=== PATIENT | female | born 1990 | race African-American/Black ===

== ENCOUNTER 2018-06-10 13:38 | Emergency (ER) | payer SELFPAY ==
--- NOTE | 2018-06-10 14:39 | ER Document Report ---
ED Medical Screen (RME) - General Chief Complaint: Abdominal Cramping Stated Complaint: ABDOMINAL PAIN Time Seen by Provider: 06/10/18 14:37 Primary Care Provider: KIA CARRIZALES MD [Primary Care Provider] - Follow up as needed Mode of Arrival: Ambulatory Information source: Patient Notes: 27-year-old female presents to ED for complaint of pelvic cramping and vaginal spotting. She has not had a period since beginning of and thinks she may be and now she is spotting and she is concerned. 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 She is alert oriented respirations regular and unlabored and walks with a even steady gait. After performing a Medical Screening Examination, I spoke with the patient at length in regards to leaving the hospital against medical advice. I do not believe the patient should leave but the patient is alert oriented x4, understands the risks and benefits of staying and leaving including disability and . Pt understands that he can return at any time for further care and is more than welcome to do so. Pt verbalizes this understanding. - Related Data Allergies/Adverse Reactions: No Known Allergies Allergy (Unverified 06/10/18 13:39) Physical Exam - Vital signs Vitals: Temp Pulse Resp BP Pulse Ox 98.4 F 101 H 16 109/62 98 06/10/18 13:47 06/10/18 13:47 06/10/18 13:47 06/10/18 13:47 06/10/18 13:47 Course - Vital Signs Vital signs: Temp Pulse Resp BP Pulse Ox 98.4 F 101 H 16 109/62 98 06/10/18 13:47 06/10/18 13:47 06/10/18 13:47 06/10/18 13:47 06/10/18 13:47 Doctor's Discharge - Discharge Referrals: KIA CARRIZALES MD [Primary Care Provider] - Follow up as needed
[2018-06-10 16:13] LABS: ABSOLUTE EOSINOPHILS # (AUTO) 0.1 10^3/uL (0.0-0.6); ABSOLUTE LYMPHOCYTES (AUTO) 1.7 10^3/uL (0.5-4.7); ABSOLUTE MONOCYTES (AUTO) 0.6 10^3/uL (0.1-1.4); ABSOLUTE NEUT (AUTO) 9.3 10^3/uL (1.7-8.2); BASOPHILS % (AUTO) 0.3 % (0-2); EOSINOPHILS % (AUTO) 0.9 % (0-6); LYMPHOCYTES % (AUTO) 14.8 % (13-45); MEAN CORPUSCULAR HEMOGLOBIN 28.1 pg (27.0-33.4); MEAN CORPUSCULAR HGB CONC 33.4 g/dL (32.0-36.0); MEAN CORPUSCULAR VOLUME 84 fl (80-97); MONOCYTES % (AUTO) 4.8 % (3-13); PLATELET COUNT 189 10^3/uL (150-450); RED BLOOD COUNT 4.29 10^6/uL (3.72-5.28); RED CELL DISTRIBUTION WIDTH 14.4 % (11.5-14.0); SEGMENTED NEUTROPHILS % (AUTO) 79.2 % (42-78); TOTAL CELLS COUNTED % (AUTO) 100 %; WHITE BLOOD COUNT 11.8 10^3/uL (4.0-10.5)
[2018-06-10 16:33] LABS: ALANINE AMINOTRANSFERASE 24 U/L (9-52); ALBUMIN 4.4 g/dL (3.5-5.0); ALKALINE PHOSPHATASE 51 U/L (38-126); ANION GAP 8 (5-19); ASPARTATE AMINO TRANSFERASE 28 U/L (14-36); BILIRUBIN,DIRECT 0.2 mg/dL (0.0-0.4); BILIRUBIN,TOTAL 0.3 mg/dL (0.2-1.3); BLOOD UREA NITROGEN 14 mg/dL (7-20); CALCIUM 9.4 mg/dL (8.4-10.2); CARBON DIOXIDE 23 mmol/L (22-30); CHLORIDE 106 mmol/L (98-107); GLUCOSE 86 mg/dL (75-110); POTASSIUM 4.5 mmol/L (3.6-5.0); SODIUM 137.1 mmol/L (137-145); TOTAL PROTEIN 7.1 g/dL (6.3-8.2)
[2018-06-10 16:47] LABS: APPEARANCE,URINE SLIGHTLY-CLOUDY; BILIRUBIN,URINE NEGATIVE (NEGATIVE); COLOR,URINE YELLOW; GLUCOSE, URINE NEGATIVE (NEGATIVE); KETONES,URINE NEGATIVE (NEGATIVE); LEUKOCYTE ESTERASE,URINE SMALL (NEGATIVE); NITRITE,URINE NEGATIVE (NEGATIVE); PROTEIN,URINE NEGATIVE (NEGATIVE); URINE SPECIFIC GRAVITY 1.024; UROBILINOGEN,URINE NEGATIVE mg/dL (<2.0)
--- NOTE | 2018-06-10 17:41 | ER Document Report ---
ED GI/ - General Chief Complaint: Abdominal Cramping Stated Complaint: ABDOMINAL PAIN Time Seen by Provider: 06/10/18 14:37 Primary Care Provider: KIA CARRIZALES MD [ACTIVE STAFF] - Follow up as needed Mode of Arrival: Ambulatory Notes: 27-year-old 001 at around 8 weeks by dates who presents today with 1 week of some intermittent suprapubic nonbleeding abdominal pain without fevers. Some minimal spotting without clots. No dysuria vaginal discharge. No flank pain. TRAVEL OUTSIDE OF THE [place] IN LAST 30 DAYS: No - HPI Patient complains to provider of: Other - See above Onset: Other - See above Quality of pain: Other - See above Severity at maximum: Mild Severity in ED: Mild Pain Level: Denies Location: Other - See above Vaginal bleeding (Compared to normal period): Spotting Menstrual period history: Missed, Associated symptoms: Other - See above Exacerbated by: Denies Relieved by: Denies Similar symptoms previously: No Recently seen / treated by doctor: No - Related Data Allergies/Adverse Reactions: No Known Allergies Allergy (Unverified 06/10/18 13:39) Past Medical History - General Information source: Patient - Social History Smoking Status: Never Smoker Chew tobacco use (# tins/day): No Drug Abuse: None Family History: Reviewed & Not Pertinent Patient has suicidal ideation: No Patient has homicidal ideation: No Renal/ Medical History: Denies: Hx Peritoneal Dialysis Review of Systems - Review of Systems Constitutional: denies: Fever EENT: Nose discharge. denies: Eye discharge Cardiovascular: denies: Chest pain, Palpitations Respiratory: denies: Short of breath Gastrointestinal: denies: Vomiting Genitourinary: denies: Dysuria Musculoskeletal: denies: Leg swelling Skin: denies: Rash Neurological/Psychological: Other - no slurred speech -: Yes All other systems reviewed and negative Physical Exam - Vital signs Vitals: Temp Pulse Resp BP Pulse Ox 98.4 F 101 H 16 109/62 98 06/10/18 13:47 06/10/18 13:47 06/10/18 13:47 06/10/18 13:47 06/10/18 13:47 Notes: Reviewed vital signs and nursing note as charted by RN. CONSTITUTIONAL: Alert and oriented and responds appropriately to questions. Well-appearing; well-nourished HEAD: Normocephalic; atraumatic EYES: Sclerae pale CARD: Regular rate and rhythm; no murmurs; symmetric distal pulses RESP: Breath sounds bilaterally without wheezing or rhonchi ABD/GI: Normal bowel sounds; non-distended; soft, nontender to deep palpation of all 4 quadrants of the abdomen; no palpable organomegaly or masses BACK: The back appears normal and is non-tender to palpation EXT: Normal ROM in all joints; non-tender to palpation; no edema SKIN: No acute lesions noted NEURO: CN 2-12 intact; 5/5 bilateral upper and lower extremity strength with sensation intact to light touch PSYCH: The patient's mood and manner are appropriate. Grooming and personal hygiene are appropriate. Course - Re-evaluation Re-evalutation: 06/10/18 17:42 Given the history and physical examination, we will order an ultrasound, obtain a RhoGam, obtain hemoglobin, and perform a transvaginal ultrasound. Quantitative hCG as recorded. 06/10/18 18:32 Quant hemoglobin and blood type as recorded. No RhoGam is needed. No change in exam. Vital signs are stable. On pelvic examination the patient has no obvious external/internal lesions. Osseous closed. Minimal blood in the vault. No adnexal tenderness or masses. No cervical motion tenderness. - Vital Signs Vital signs: Temp Pulse Resp BP Pulse Ox 98.4 F 101 H 16 109/62 98 06/10/18 13:47 06/10/18 13:47 06/10/18 13:47 06/10/18 13:47 06/10/18 13:47 - Laboratory Result Diagrams: 06/10/18 15:50 06/10/18 15:50 Laboratory results interpreted by me: 06/10/18 06/10/18 06/10/18 15:45 15:50 15:50 WBC 11.8 H RDW 14.4 H Seg Neutrophils % 79.2 H Absolute Neutrophils 9.3 H Beta HCG, Quant 773332.00 H Ur Leukocyte Esterase SMALL H Urine Ascorbic Acid 40 H Discharge - Discharge Clinical Impression: Vaginal bleeding in patient at less than 20 weeks gestation Referrals: KIA CARRIZALES MD [ACTIVE STAFF] - Follow up as needed
[2018-06-10 18:18] LABS: T.VAGINALIS (WET MOUNT) NO TRICHOMONAS SEEN; YEAST (WET MOUNT) NO YEAST SEEN
[2018-06-10 18:19] LABS: BACTERIA (WET MOUNT) 4+ BACTERIA SEEN; EPITHELIALS (WET MOUNT) 4+ EPITHELIALS SEEN; RBCS (WET MOUNT) NO RBCS SEEN; WBCS (WET MOUNT) 4+ WBCS SEEN
--- NOTE | 2018-06-10 19:02 | RADIOLOGY REPORT (SQ) ---
EXAM DESCRIPTION: U/S OB TRANSVAGINAL W/O DOP COMPLETED DATE/TIME: 06/10/2018 6:52 pm REASON FOR STUDY: 39; preg with vag bleeding COMPARISON: None. TECHNIQUE: Transvaginal static and realtime grayscale images acquired of the pelvis. Additional francisco cted spectral and color Doppler images recorded. All images stored on PACs. bHC,000 CLINICAL DATES: LMP 03/27/2018. 12 weeks 5 days. LIMITATIONS: None. FINDINGS: FETUS: Single Living intrauterine . ULTRASOUND EGA: 12 weeks 5 days. ULTRASOUND MENG: 12/18/2018 EFW: Not applicable less than 20 weeks. CRL: 6.4 cm. FHR: 160 beats per minute. SURVEY: Too early to assess. AMNIOTIC FLUID: Adequate amount. PLACENTA: Posterior. SUBCHORIONIC BLEED: No SIZE OF BLEED: Not applicable. UTERUS: No masses. No anomalies. CERVICAL LENGTH: 4.1 cm. Closed. RIGHT ADNEXA: Ovary not seen. No adnexal free fluid. No adnexal masses. LEFT ADNEXA: Ovary not seen. No adnexal free fluid. No adnexal masses. FREE FLUID: None. OTHER: No other significant finding. IMPRESSION: LIVING INTRAUTERINE . EGA 12 weeks 5 days. Trimester of : First - 0 to 13 weeks. TECHNICAL DOCUMENTATION: JOB ID: [id number] [employer]- All Rights Reserved Reading location - IP/workstation name: [email or web address]
[2018-06-10 19:52] VITALS: BP 111/63
[2018-06-10 19:59] LABS: CHLAM PCR NOT DETECTED (NOT DETECT); GON PCR NOT DETECTED (NOT DETECT)
== END 2018-06-10 19:53 | disposition home or self-care (01) ==
LOC: ER 13:38
DX: O46.91 Antepartum hemorrhage, unspecified, first trimester (principal); O26.891 Other specified pregnancy related conditions, first trimester; R10.9 Unspecified abdominal pain; R10.30 Lower abdominal pain, unspecified; Z3A.08 8 weeks gestation of pregnancy
CPT/HCPCS: 36415; 76817; 80053; 81001; 84702; 85025; 86900; 86901; 87210; 87491; 87591; 99284

== ENCOUNTER 2018-12-03 00:16 | Emergency (ER) | payer MEDICAID ==
[2018-12-03 00:21] VITALS: BP 116/79
== END 2018-12-03 02:10 | disposition left against medical advice (07) ==
LOC: ER 00:16
DX: Z53.21 Procedure and treatment not carried out due to patient leaving prior to being seen by health care provider (principal)

== ENCOUNTER 2019-01-21 10:47 | Emergency (ER) | payer MEDICAID ==
[2019-01-21] MEDS ORDERED: METOCLOPRAMIDE HCL ORAL SOLN 10 MG/10 ML UDCUP PO ONE (11:17)
[2019-01-21] MEDS ORDERED: MAG HYDROX/AL HYDROX/SIMETH SUSP 30 ML UDCUP PO ONE (11:17)
[2019-01-21] MEDS ORDERED: LIDOCAINE 2% VISCOUS SOLN 20 ML UDCUP PO ONE (11:17)
--- NOTE | 2019-01-21 11:20 | ER Document Report ---
ED Medical Screen (RME) - General Chief Complaint: Abdominal Pain Stated Complaint: ABDOMINAL PAIN Time Seen by Provider: 01/21/19 11:09 Notes: Patient is a 28-year-old female presents to the emergency department with a chief complaint of upper abdominal cramping. Patient reports is located in the epigastric area. Patient denies belching, acid reflux or burning sensation in the esophagus. Patient does report a constant sharp pain to the upper abdomen for 2 days that has become more intense. Patient reports she did vomit once last night. Patient denies any vaginal bleeding or discharge. Patient reports her last menstrual cycle was December 14 and normally has regular periods. Patient reports she is sexually active and is not on control. Patient states she would like to be checked for STDs if possible as she did have sexual intercourse 3 weeks ago. Patient states she has had an odor coming from her vagina but no change in her normal discharge. Patient denies urinary symptoms. TRAVEL OUTSIDE OF THE [place] IN LAST 30 DAYS: No - Related Data Allergies/Adverse Reactions: No Known Allergies Allergy (Verified 01/21/19 10:49) Past Medical History Renal/ Medical History: Denies: Hx Peritoneal Dialysis Physical Exam - Vital signs Vitals: Temp Pulse Resp BP Pulse Ox 98.9 F 82 16 115/56 L 97 01/21/19 10:55 01/21/19 10:55 01/21/19 10:55 01/21/19 10:55 01/21/19 10:55 - Abdominal Inspection: Normal Distension: No distension Bowel sounds: Normal Tenderness: Tender - Epigastric tenderness Course - Re-evaluation Re-evalutation: 01/21/19 11:20 I have greeted and performed a rapid initial assessment of this patient. A comprehensive ED assessment and evaluation of the patient, analysis of test results and completion of the medical decision making process will be conducted by additional ED providers. - Vital Signs Vital signs: Temp Pulse Resp BP Pulse Ox 98.9 F 82 16 115/56 L 97 01/21/19 10:55 01/21/19 10:55 01/21/19 10:55 01/21/19 10:55 01/21/19 10:55
[2019-01-21 12:17] LABS: ABSOLUTE EOSINOPHILS # (AUTO) 0.1 10^3/uL (0.0-0.6); ABSOLUTE LYMPHOCYTES (AUTO) 1.9 10^3/uL (0.5-4.7); ABSOLUTE MONOCYTES (AUTO) 0.4 10^3/uL (0.1-1.4); ABSOLUTE NEUT (AUTO) 7.4 10^3/uL (1.7-8.2); BASOPHILS % (AUTO) 0.2 % (0-2); EOSINOPHILS % (AUTO) 1.1 % (0-6); HEMATOCRIT 36.1 % (36.0-47.0); HEMOGLOBIN 11.9 g/dL (12.0-15.5); LYMPHOCYTES % (AUTO) 19.1 % (13-45); MEAN CORPUSCULAR HEMOGLOBIN 27.6 pg (27.0-33.4); MEAN CORPUSCULAR HGB CONC 33.1 g/dL (32.0-36.0); MEAN CORPUSCULAR VOLUME 84 fl (80-97); PLATELET COUNT 182 10^3/uL (150-450); RED BLOOD COUNT 4.32 10^6/uL (3.72-5.28); RED CELL DISTRIBUTION WIDTH 15.2 % (11.5-14.0); SEGMENTED NEUTROPHILS % (AUTO) 75.6 % (42-78); TOTAL CELLS COUNTED % (AUTO) 100 %; WHITE BLOOD COUNT 9.8 10^3/uL (4.0-10.5)
[2019-01-21 12:33] LABS: APPEARANCE,URINE SLIGHTLY-CLOUDY; BILIRUBIN,URINE NEGATIVE (NEGATIVE); COLOR,URINE AMBER; GLUCOSE, URINE NEGATIVE (NEGATIVE); KETONES,URINE NEGATIVE (NEGATIVE); LEUKOCYTE ESTERASE,URINE NEGATIVE (NEGATIVE); NITRITE,URINE POSITIVE (NEGATIVE); PROTEIN,URINE NEGATIVE (NEGATIVE); URINE SPECIFIC GRAVITY 1.024; UROBILINOGEN,URINE NEGATIVE mg/dL (<2.0)
[2019-01-21 12:35] LABS: ALBUMIN 4.2 g/dL (3.5-5.0); ALKALINE PHOSPHATASE 54 U/L (38-126); ANION GAP 9 (5-19); ASPARTATE AMINO TRANSFERASE 21 U/L (14-36); BILIRUBIN,DIRECT 0.1 mg/dL (0.0-0.4); BILIRUBIN,TOTAL 0.4 mg/dL (0.2-1.3); BLOOD UREA NITROGEN 9 mg/dL (7-20); CALCIUM 9.4 mg/dL (8.4-10.2); CARBON DIOXIDE 26 mmol/L (22-30); CHLORIDE 103 mmol/L (98-107); GLUCOSE 107 mg/dL (75-110); POTASSIUM 3.6 mmol/L (3.6-5.0)
--- NOTE | 2019-01-21 13:03 | ER Document Report ---
ED GI/ - General Chief Complaint: Abdominal Pain Stated Complaint: ABDOMINAL PAIN Time Seen by Provider: 01/21/19 11:09 Primary Care Provider: [facility] [Provider Group] - Follow up as needed [facility] [NO [facility]AL MD] - Follow up as needed Mode of Arrival: Ambulatory Information source: Patient Notes: Patient presents complaining of 2-day history of epigastric abdominal pain with nausea and vomiting. No diarrhea. Patient also reports some lower pelvic pain with urinary frequency and odor to her urine. Patient reports mild vaginal discharge. Patient does report recent unprotected intercourse and is concerned about possible exposure to STD and would like to be tested. Patient states that she was given medications in triage to help with her epigastric pain and that the medicine has almost completely resolved her upper abdominal pain symptoms TRAVEL OUTSIDE OF THE [place] IN LAST 30 DAYS: No - HPI Patient complains to provider of: Abdominal pain, Vaginal discharge, Vomiting Onset: Other - 2 days Timing/Duration: Persistent Quality of pain: Achy Pain Level: 2 Location: Epigastric, Pelvis Vaginal bleeding (Compared to normal period): None Sexual history: Unprotected intercourse Associated symptoms: Nausea, Odor, Urinary frequency, Vaginal discharge, Vomiting. denies: Diarrhea, Fever, Urinary hesitancy Exacerbated by: Denies Relieved by: Denies Similar symptoms previously: No Recently seen / treated by doctor: No - Related Data Allergies/Adverse Reactions: No Known Allergies Allergy (Verified 01/21/19 10:49) Past Medical History - General Information source: Patient - Social History Smoking Status: Never Smoker Chew tobacco use (# tins/day): No Frequency of alcohol use: Occasional Drug Abuse: None Occupation: None Lives with: Family Family History: Reviewed & Not Pertinent Patient has suicidal ideation: No Patient has homicidal ideation: No - Medical History Medical History: Negative Renal/ Medical History: Denies: Hx Peritoneal Dialysis Surgical Hx: Negative Review of Systems - Review of Systems Constitutional: No symptoms reported. denies: Fever, Recent illness EENT: No symptoms reported Cardiovascular: No symptoms reported Respiratory: No symptoms reported Gastrointestinal: Abdominal pain, Nausea, Vomiting Genitourinary: Frequency. denies: Dysuria Female Genitourinary: Vaginal discharge. denies: Vaginal bleeding Musculoskeletal: No symptoms reported. denies: Back pain Skin: No symptoms reported Hematologic/Lymphatic: No symptoms reported Neurological/Psychological: No symptoms reported Physical Exam - Vital signs Vitals: Temp Pulse Resp BP Pulse Ox 98.9 F 82 16 115/56 L 97 01/21/19 10:55 01/21/19 10:55 01/21/19 10:55 01/21/19 10:55 01/21/19 10:55 - General General appearance: Appears well, Alert In distress: None - HEENT Head: Normocephalic, Atraumatic Eyes: Normal Conjunctiva: Normal Nasal: Normal Mouth/Lips: Normal Mucous membranes: Normal Neck: Normal, Supple. No: Lymphadenopathy - Respiratory Respiratory status: No respiratory distress Chest status: Nontender Breath sounds: Normal. No: Rales, Rhonchi, Stridor, Wheezing Chest palpation: Normal - Cardiovascular Rhythm: Regular Heart sounds: S1 appreciated, S2 appreciated Murmur: No - Abdominal Inspection: Normal Distension: No distension Bowel sounds: Normal Tenderness: Tender - epigastric, lower pelvic - Genitourinary External exam: Normal Speculum exam: Normal, Cervix closed Vaginal bleeding: None Bimanuel exam: Adnexal tenderness - right. No: Cervical motion tender - Back Back: Normal, Nontender. No: CVA tenderness - Extremities General upper extremity: Normal inspection, Normal ROM General lower extremity: Normal inspection, Normal ROM - Neurological Neuro grossly intact: Yes Cognition: Normal [place] Coma Scale Eye Opening: Spontaneous [place] Coma Scale Verbal: Oriented [place] Coma Scale Motor: Obeys Commands [place] Coma Scale Total: 15 - Psychological Associated symptoms: Normal affect, Normal mood - Skin Skin Temperature: Warm Skin Moisture: Dry Skin Color: Normal Course - Re-evaluation Re-evalutation: 01/21/19 14:23 Patient advised of positive test and ultrasound findings. Patient encouraged to follow-up with the primary doctor and establish OB care. Patient does have concerns about possible STD exposure and would like prophylactic treatment at this time. Urine culture will be obtained. Patient otherwise nontoxic in appearance and stable for discharge. Patient presents with abdominal pain without signs of peritonitis or other life-threatening or serious etiology. Patient appears stable for discharge and has been instructed to return immediately if the symptoms worsen in any way for reevaluation. - Vital Signs Vital signs: Temp Pulse Resp BP Pulse Ox 97.7 F 86 20 122/79 100 01/21/19 15:19 01/21/19 15:19 01/21/19 15:19 01/21/19 15:19 01/21/19 15:19 - Laboratory Result Diagrams: 01/21/19 11:21 01/21/19 11:21 Laboratory results interpreted by me: 01/21/19 01/21/19 01/21/19 11:21 11:21 11:21 Hgb 11.9 L RDW 15.2 H Beta HCG, Quant 77067.00 H Urine Nitrite POSITIVE H 01/21/19 14:24 Labs- Entire Visit 01/21/19 01/21/19 01/21/19 11:21 11:21 11:21 WBC 9.8 RBC 4.32 Hgb 11.9 L Hct 36.1 MCV 84 MCH 27.6 MCHC 33.1 RDW 15.2 H Plt Count 182 Lymph % (Auto) 19.1 Cherry % (Auto) 4.0 Eos % (Auto) 1.1 Baso % (Auto) 0.2 Absolute Neuts (auto) 7.4 Absolute Lymphs (auto) 1.9 Absolute Monos (auto) 0.4 Absolute Eos (auto) 0.1 Absolute Basos (auto) 0.0 Seg Neutrophils % 75.6 Sodium 137.7 Potassium 3.6 Chloride 103 Carbon Dioxide 26 Anion Gap 9 BUN 9 Creatinine 0.59 Est GFR ( Amer) > 60 Est GFR (MDRD) Non-Af > 60 Glucose 107 Calcium 9.4 Total Bilirubin 0.4 Direct Bilirubin 0.1 Neonat Total Bilirubin Not Reportable Neonat Direct Bilirubin Not Reportable Neonat Indirect Bili Not Reportable AST 21 ALT 13 Alkaline Phosphatase 54 Total Protein 7.0 Albumin 4.2 Lipase 118.3 Beta HCG, Quant 80285.00 H Total Beta HCG POSITIVE Urine Color PAVEL Urine Appearance SLIGHTLY-CLOUDY Urine pH 6.0 Ur Specific Waldron 1.024 Urine Protein NEGATIVE Urine Glucose (UA) NEGATIVE Urine Ketones NEGATIVE Urine Blood NEGATIVE Urine Nitrite POSITIVE H Urine Bilirubin NEGATIVE Urine Urobilinogen NEGATIVE Ur Leukocyte Esterase NEGATIVE Urine WBC (Auto) 2 Urine RBC (Auto) 2 Squamous Epi Cells Auto 2 Urine Mucus (Auto) FEW Urine Ascorbic Acid NEGATIVE Epi Cells (Wet Prep) Bacteria (Wet Prep) Trichomonas (Wet Prep) Vaginal WBC Vaginal RBC Vaginal Yeast 01/21/19 12:50 WBC RBC Hgb Hct MCV MCH MCHC RDW Plt Count Lymph % (Auto) Cherry % (Auto) Eos % (Auto) Baso % (Auto) Absolute Neuts (auto) Absolute Lymphs (auto) Absolute Monos (auto) Absolute Eos (auto) Absolute Basos (auto) Seg Neutrophils % Sodium Potassium Chloride Carbon Dioxide Anion Gap BUN Creatinine Est GFR ( Amer) Est GFR (MDRD) Non-Af Glucose Calcium Total Bilirubin Direct Bilirubin Neonat Total Bilirubin Neonat Direct Bilirubin Neonat Indirect Bili AST ALT Alkaline Phosphatase Total Protein Albumin Lipase Beta HCG, Quant Total Beta HCG Urine Color Urine Appearance Urine pH Ur Specific Waldron Urine Protein Urine Glucose (UA) Urine Ketones Urine Blood Urine Nitrite Urine Bilirubin Urine Urobilinogen Ur Leukocyte Esterase Urine WBC (Auto) Urine RBC (Auto) Squamous Epi Cells Auto Urine Mucus (Auto) Urine Ascorbic Acid Epi Cells (Wet Prep) 4+ EPITHELIALS SEEN Bacteria (Wet Prep) 4+ BACTERIA SEEN Trichomonas (Wet Prep) NO TRICHOMONAS SEEN Vaginal WBC 2+ WBCS SEEN Vaginal RBC FEW RBCS SEEN Vaginal Yeast NO YEAST SEEN - Diagnostic Test Radiology reviewed: Reports reviewed Discharge - Discharge Clinical Impression: Intrauterine , Bacterial vaginosis in UTI (urinary tract infection) Qualifiers: Urinary tract infection type: site unspecified Hematuria presence: without hematuria Qualified Code(s): N39.0 - Urinary tract infection, site not specified Nausea & vomiting Qualifiers: Vomiting type: unspecified Vomiting Intractability: non-intractable Qualified Code(s): R11.2 - Nausea with vomiting, unspecified Condition: Stable Disposition: HOME, SELF-CARE Instructions: Cephalexin ([facility]), Pelvic Pain in ([facility]), Urinary Tract Infection ([facility]), Vaginosis, Bacterial ([facility]) Additional Instructions: Return immediately for any new or worsening symptoms Followup with your primary care provider, call tomorrow to make a followup appointment Urine culture is pending, will call if you need any different treatment Follow-up with an [employer] provider to establish care Prescriptions: Metronidazole [Flagyl 500 mg Tablet] 500 mg PO BID #14 tablet Cephalexin Monohydrate [Keflex 500 mg Capsule] 500 mg PO BID 5 Days capsule Promethazine HCl [Phenergan 25 mg Tablet] 25 mg PO Q6H PRN #10 tablet PRN Reason: Referrals: [facility] [Provider Group] - Follow up as needed [facility] [NO LOCAL MD] - Follow up as needed
[2019-01-21 13:04] LABS: BACTERIA (WET MOUNT) 4+ BACTERIA SEEN; EPITHELIALS (WET MOUNT) 4+ EPITHELIALS SEEN; RBCS (WET MOUNT) FEW RBCS SEEN; T.VAGINALIS (WET MOUNT) NO TRICHOMONAS SEEN; WBCS (WET MOUNT) 2+ WBCS SEEN; YEAST (WET MOUNT) NO YEAST SEEN
--- NOTE | 2019-01-21 14:12 | RADIOLOGY REPORT (SQ) ---
EXAM DESCRIPTION: U/S OB TRANSVAGINAL W/O DOP COMPLETED DATE/TIME: 01/21/2019 1:53 pm REASON FOR STUDY: pelvic pain COMPARISON: None. TECHNIQUE: Transvaginal static and realtime grayscale images acquired of the pelvis. Additional francisco cted spectral and color Doppler images recorded. All images stored on PACs. CLINICAL AGE: 5 weeks 4 days bHC,400 LIMITATIONS: None. FINDINGS: UTERUS: No masses. No anomalies. GESTATIONAL SAC: Normal shape. 1.4 cm diameter correlating with 6 weeks 2 day gestation. MENG 09/14/19 20. YOLK SAC: 4 mm POLE: None present. RIGHT ADNEXA: Normal ovary with normal vascular flow. No adnexal free fluid. No adnexal masses. LEFT ADNEXA: Normal ovary with normal vascular flow. No adnexal free fluid. No adnexal masses. FREE FLUID: None. OTHER: No other significant finding. IMPRESSION: EARLY INTRAUTERINE , 6 weeks 2 day gestation. BHCG LEVEL APPROPRIATE FOR ENDOMETRIAL FINDINGS. Trimester of : First trimester - 0 to 13 weeks. TECHNICAL DOCUMENTATION: JOB ID: [id number] 2010 [employer]- All Rights Reserved Reading location - IP/workstation name: [email or web address]
[2019-01-21] MEDS ORDERED: AZITHROMYCIN 250 MG TABLET PO ONE (14:22)
[2019-01-21] MEDS ORDERED: CEFTRIAXONE INJ 1000 MG VIAL IM ONE (14:22)
[2019-01-21] MEDS ORDERED: LIDOCAINE 1% INJ (10 MG/ML) 10 ML MDV INJ ONE (14:22)
[2019-01-21 14:31] LABS: CHLAM PCR NOT DETECTED (NOT DETECT)
[2019-01-21 15:21] VITALS: BP 122/79
== END 2019-01-21 15:21 | disposition home or self-care (01) ==
LOC: ER 10:47
DX: O23.41 Unspecified infection of urinary tract in pregnancy, first trimester (principal); O23.591 Infection of other part of genital tract in pregnancy, first trimester; B96.89 Other specified bacterial agents as the cause of diseases classified elsewhere; O21.9 Vomiting of pregnancy, unspecified; O26.891 Other specified pregnancy related conditions, first trimester; R10.13 Epigastric pain; R10.2 Pelvic and perineal pain; R35.0 Frequency of micturition; Z3A.01 Less than 8 weeks gestation of pregnancy; Z20.2 Contact with and (suspected) exposure to infections with a predominantly sexual mode of transmission
CPT/HCPCS: 99284; 96372; 36415; 87086; 87210; 84702; 83690; 85025; 87088; 80053; 81001; 87186; 87491; 87591; 76817; Q0144; J3490 ×4; J0696

== ENCOUNTER 2019-01-29 14:28 | Emergency (ER) | payer MEDICAID ==
[2019-01-29] MEDS ORDERED: PROMETHAZINE HCL 25 MG TABLET PO ONE (14:55)
[2019-01-29] MEDS ORDERED: ACETAMINOPHEN 325 MG TABLET PO ONE (14:55)
--- NOTE | 2019-01-29 14:57 | ER Document Report ---
ED Medical Screen (RME) - General Chief Complaint: Vaginal Bleeding Stated Complaint: BLEEDING WITH Time Seen by Provider: 01/29/19 14:53 Mode of Arrival: Ambulatory Information source: Patient Notes: This 28-year-old 6-8 weeks female with last menstrual period in December,, P1 presents to the emergency department complaining of some nausea abdominal cramping and vaginal bleeding. Reports started 3 hours prior to arrival. Denies trauma. No other symptoms such as fever vomiting diarrhea. I have greeted and performed a rapid initial assessment of this patient. A comprehensive ED assessment and evaluation of the patient, analysis of test results and completion of the medical decision making process will be conducted by additional ED providers. Dictation of this chart was performed using voice recognition software; therefore, there may be some unintended grammatical errors. TRAVEL OUTSIDE OF THE [place] IN LAST 30 DAYS: No - Related Data Allergies/Adverse Reactions: No Known Allergies Allergy (Verified 01/29/19 14:46) Past Medical History - General Last Menstrual Period: 12/13/18 - Social History Chew tobacco use (# tins/day): No Frequency of alcohol use: None Drug Abuse: None Renal/ Medical History: Denies: Hx Peritoneal Dialysis Physical Exam - Vital signs Vitals: Temp Pulse Resp BP Pulse Ox 98.3 F 84 18 120/76 98 01/29/19 14:42 01/29/19 14:42 01/29/19 14:42 01/29/19 14:42 01/29/19 14:42 Course - Vital Signs Vital signs: Temp Pulse Resp BP Pulse Ox 98.3 F 84 18 120/76 98 01/29/19 14:42 01/29/19 14:42 01/29/19 14:42 01/29/19 14:42 01/29/19 14:42
[2019-01-29 15:30] LABS: ABSOLUTE EOSINOPHILS # (AUTO) 0.1 10^3/uL (0.0-0.6); ABSOLUTE MONOCYTES (AUTO) 0.5 10^3/uL (0.1-1.4); ABSOLUTE NEUT (AUTO) 7.8 10^3/uL (1.7-8.2); BASOPHILS % (AUTO) 0.3 % (0-2); EOSINOPHILS % (AUTO) 0.9 % (0-6); HEMATOCRIT 34.8 % (36.0-47.0); HEMOGLOBIN 11.7 g/dL (12.0-15.5); MEAN CORPUSCULAR HEMOGLOBIN 28.1 pg (27.0-33.4); MEAN CORPUSCULAR HGB CONC 33.6 g/dL (32.0-36.0); MEAN CORPUSCULAR VOLUME 84 fl (80-97); MONOCYTES % (AUTO) 5.3 % (3-13); PLATELET COUNT 196 10^3/uL (150-450); RED BLOOD COUNT 4.15 10^6/uL (3.72-5.28); RED CELL DISTRIBUTION WIDTH 14.7 % (11.5-14.0); SEGMENTED NEUTROPHILS % (AUTO) 74.5 % (42-78); TOTAL CELLS COUNTED % (AUTO) 100 %; WHITE BLOOD COUNT 10.4 10^3/uL (4.0-10.5)
[2019-01-29 15:39] LABS: APPEARANCE,URINE CLEAR; BILIRUBIN,URINE NEGATIVE (NEGATIVE); COLOR,URINE YELLOW; GLUCOSE, URINE NEGATIVE (NEGATIVE); KETONES,URINE NEGATIVE (NEGATIVE); LEUKOCYTE ESTERASE,URINE NEGATIVE (NEGATIVE); NITRITE,URINE NEGATIVE (NEGATIVE); PROTEIN,URINE NEGATIVE (NEGATIVE); URINE SPECIFIC GRAVITY 1.019; UROBILINOGEN,URINE NEGATIVE mg/dL (<2.0)
[2019-01-29 15:46] LABS: ALBUMIN 4.1 g/dL (3.5-5.0); ALKALINE PHOSPHATASE 57 U/L (38-126); ANION GAP 11 (5-19); ASPARTATE AMINO TRANSFERASE 23 U/L (14-36); BILIRUBIN,DIRECT 0.1 mg/dL (0.0-0.4); BILIRUBIN,TOTAL 0.4 mg/dL (0.2-1.3); BLOOD UREA NITROGEN 11 mg/dL (7-20); CALCIUM 9.4 mg/dL (8.4-10.2); CARBON DIOXIDE 21 mmol/L (22-30); CHLORIDE 101 mmol/L (98-107); GLUCOSE 113 mg/dL (75-110); POTASSIUM 4.2 mmol/L (3.6-5.0); TOTAL PROTEIN 6.9 g/dL (6.3-8.2)
--- NOTE | 2019-01-29 17:30 | RADIOLOGY REPORT (SQ) ---
EXAM DESCRIPTION: U/S OB TRANSVAGINAL W/O DOP COMPLETED DATE/TIME: 01/29/2019 4:59 pm REASON FOR STUDY: cramp bleed preg COMPARISON: 01/21/2019 TECHNIQUE: Transvaginal static and realtime grayscale images acquired of the pelvis. Additional francisco cted spectral and color Doppler images recorded. All images stored on PACs. bHCG: Pending. CLINICAL DATES: 6 weeks 5 days LIMITATIONS: None. FINDINGS: FETUS: Single Living intrauterine . ULTRASOUND EGA: 6 weeks 5 days ULTRASOUND MENG: 09/19/2019 EFW: Not applicable less than 20 weeks. CRL: 8 mm FHR: 128 beats per minute. SURVEY: No visualized anomalies. AMNIOTIC FLUID: Adequate amount. PLACENTA: Not yet developed due to early gestation. SUBCHORIONIC BLEED: Yes SIZE OF BLEED: 2.1 x 1.9 x 1.0 cm UTERUS: No masses. No anomalies. CERVICAL LENGTH: 3.2 cm. Trace endocervical free fluid. RIGHT ADNEXA: Normal ovary with normal vascular flow. No adnexal free fluid. No adnexal masses. LEFT ADNEXA: Normal ovary with normal vascular flow. No adnexal free fluid. No adnexal masses. FREE FLUID: None. OTHER: No other significant finding. IMPRESSION: LIVING INTRAUTERINE . EGA 6 weeks 5 days Trace endocervical free fluid. SUBCHORIONIC BLEED: Yes SIZE OF BLEED: 2.1 x 1.9 x 1.0 cm Trimester of : First trimester - 0 to 13 weeks. TECHNICAL DOCUMENTATION: JOB ID: [id number] [id number] 2010 [employer]- All Rights Reserved rev-09/24 Reading location - IP/workstation name: [email or web address]
--- NOTE | 2019-01-29 17:50 | ER Document Report ---
ED General - General Chief Complaint: Vaginal Bleeding Stated Complaint: BLEEDING WITH Time Seen by Provider: 01/29/19 14:53 Primary Care Provider: [facility] [Outside] - Follow up as needed ELIEZER HANNAH MD [ACTIVE STAFF] - Follow up as needed Mode of Arrival: Ambulatory Information source: Patient Notes: Patient is an otherwise healthy 20-year-old female G3, P1 presenting to the emergency department with vaginal bleeding in the setting of . Patient reports she is approximately 6 weeks . She states that she began having period like bleeding this morning. She denies passing any clots. She reports low abdominal cramping but denies any fevers. TRAVEL OUTSIDE OF THE [place] IN LAST 30 DAYS: No - Related Data Allergies/Adverse Reactions: No Known Allergies Allergy (Verified 01/29/19 14:46) Past Medical History - General Information source: Patient Last Menstrual Period: 12/13/18 - Social History Smoking Status: Never Smoker Chew tobacco use (# tins/day): No Frequency of alcohol use: None Drug Abuse: None Family History: Reviewed & Not Pertinent Patient has suicidal ideation: No Patient has homicidal ideation: No - Medical History Medical History: Negative Renal/ Medical History: Denies: Hx Peritoneal Dialysis Surgical Hx: Negative - Immunizations Immunizations up to date: Yes Review of Systems - Review of Systems Constitutional: No symptoms reported EENT: No symptoms reported Cardiovascular: No symptoms reported Respiratory: No symptoms reported Gastrointestinal: No symptoms reported Genitourinary: No symptoms reported Female Genitourinary: Vaginal bleeding Musculoskeletal: No symptoms reported Skin: No symptoms reported Hematologic/Lymphatic: No symptoms reported Neurological/Psychological: No symptoms reported Physical Exam - Vital signs Vitals: Temp Pulse Resp BP Pulse Ox 98.3 F 84 18 120/76 98 01/29/19 14:42 01/29/19 14:42 01/29/19 14:42 01/29/19 14:42 01/29/19 14:42 - Notes Notes: PHYSICAL EXAMINATION: GENERAL: Well-appearing, well-nourished and in no acute distress. HEAD: Atraumatic, normocephalic. EYES: Pupils equal round and reactive to light, extraocular movements intact, conjunctiva are normal. ENT: Nares patent, oropharynx clear without exudates. Moist mucous membranes. NECK: Normal range of motion, supple without lymphadenopathy LUNGS: Breath sounds clear to auscultation bilaterally and equal. No wheezes rales or rhonchi. HEART: Regular rate and rhythm without murmurs ABDOMEN: Soft, nontender, nondistended abdomen. No guarding, no rebound. No masses appreciated. Female : No CVA tenderness. Musculoskeletal: Normal range of motion, no pitting or edema. No cyanosis. NEUROLOGICAL: Cranial nerves grossly intact. Normal speech, normal gait. Normal sensory, motor exams PSYCH: Normal mood, normal affect. SKIN: Warm, Dry, normal turgor, no rashes or lesions noted. Course - Re-evaluation Re-evalutation: 01/29/19 17:46 Patient appears well, nontoxic and vital signs are within normal limits. Ultrasound shows an intrauterine gestational age 6 weeks 5 days with a small subchorionic bleed. Labs as recorded below are appropriate for situation. Patient does report that sometimes she has a fluttering in her chest. She currently denies this at this time. Her heart sounds are normal. Will obtain an EKG and discharge if EKG is normal. Obstetrics Ultrasound 01/29/19 14:55 IMPRESSION: LIVING INTRAUTERINE . EGA 6 weeks 5 days Trace endocervical free fluid. SUBCHORIONIC BLEED: Yes SIZE OF BLEED: 2.1 x 1.9 x 1.0 cm Trimester of : First trimester - 0 to 13 weeks. Laboratory 01/29/19 01/29/19 01/29/19 15:05 15:05 15:05 WBC 10.4 RBC 4.15 Hgb 11.7 L Hct 34.8 L MCV 84 MCH 28.1 MCHC 33.6 RDW 14.7 H Plt Count 196 Lymph % (Auto) 19.0 [place] % (Auto) 5.3 Eos % (Auto) 0.9 Baso % (Auto) 0.3 Absolute Neuts (auto) 7.8 Absolute Lymphs (auto) 2.0 Absolute Monos (auto) 0.5 Absolute Eos (auto) 0.1 Absolute Basos (auto) 0.0 Seg Neutrophils % 74.5 Sodium 133.1 L Potassium 4.2 Chloride 101 Carbon Dioxide 21 L Anion Gap 11 BUN 11 Creatinine 0.55 Est GFR ( Amer) > 60 Est GFR (MDRD) Non-Af > 60 Glucose 113 H Calcium 9.4 Total Bilirubin 0.4 Direct Bilirubin 0.1 Neonat Total Bilirubin Not Reportable Neonat Direct Bilirubin Not Reportable Neonat Indirect Bili Not Reportable AST 23 ALT 14 Alkaline Phosphatase 57 Total Protein 6.9 Albumin 4.1 Beta HCG, Quant 970149.00 H Total Beta HCG POSITIVE Urine Color Urine Appearance Urine pH Ur Specific [place] Urine Protein Urine Glucose (UA) Urine Ketones Urine Blood Urine Nitrite Urine Bilirubin Urine Urobilinogen Ur Leukocyte Esterase Urine WBC (Auto) Urine RBC (Auto) U Hyaline Cast (Auto) Urine Bacteria (Auto) Squamous Epi Cells Auto Urine Mucus (Auto) Urine Ascorbic Acid Blood Type O POSITIVE Rhogam Indicated RHOGAM NOT INDICATED 01/29/19 15:05 WBC RBC Hgb Hct MCV MCH MCHC RDW Plt Count Lymph % (Auto) [place] % (Auto) Eos % (Auto) Baso % (Auto) Absolute Neuts (auto) Absolute Lymphs (auto) Absolute Monos (auto) Absolute Eos (auto) Absolute Basos (auto) Seg Neutrophils % Sodium Potassium Chloride Carbon Dioxide Anion Gap BUN Creatinine Est GFR ( Amer) Est GFR (MDRD) Non-Af Glucose Calcium Total Bilirubin Direct Bilirubin Neonat Total Bilirubin Neonat Direct Bilirubin Neonat Indirect Bili AST ALT Alkaline Phosphatase Total Protein Albumin Beta HCG, Quant Total Beta HCG Urine Color YELLOW Urine Appearance CLEAR Urine pH 6.0 Ur Specific [place] 1.019 Urine Protein NEGATIVE Urine Glucose (UA) NEGATIVE Urine Ketones NEGATIVE Urine Blood LARGE H Urine Nitrite NEGATIVE Urine Bilirubin NEGATIVE Urine Urobilinogen NEGATIVE Ur Leukocyte Esterase NEGATIVE Urine WBC (Auto) 3 Urine RBC (Auto) 1 U Hyaline Cast (Auto) 1 Urine Bacteria (Auto) TRACE Squamous Epi Cells Auto 2 Urine Mucus (Auto) RARE Urine Ascorbic Acid NEGATIVE Blood Type Rhogam Indicated - Vital Signs Vital signs: Temp Pulse Resp BP Pulse Ox 98.3 F 84 18 120/76 98 01/29/19 14:42 01/29/19 14:42 01/29/19 14:42 01/29/19 14:42 01/29/19 14:42 - Laboratory Result Diagrams: 01/29/19 15:05 01/29/19 15:05 Laboratory results interpreted by me: 01/29/19 01/29/19 01/29/19 15:05 15:05 15:05 Hgb 11.7 L Hct 34.8 L RDW 14.7 H Sodium 133.1 L Carbon Dioxide 21 L Glucose 113 H Beta HCG, Quant 941442.00 H Urine Blood LARGE H Discharge - Discharge Clinical Impression: Vaginal bleeding during Condition: Stable Disposition: HOME, SELF-CARE Additional Instructions: You are seen in the emergency department today for an episode of vaginal bleeding during . The ultrasound shows that you have an intrauterine of approximately 6 weeks 5 days. There is a some small subchorionic bleed, sometimes these resolve on their own or this may progress into a miscarriage. It is important for you to have repeat blood work and ultrasound done in 2 to 3 days. You may have this done at the health department or you may return to the emergency department for this. Nothing into the vagina until cleared by GUN PROFILER. This means no tampons, no douching, no intercourse. Please call to make an appointment with Dr. Hannah, cardiology, regarding your palpitations. Your EKG today was normal. Return to the emergency department if you develop increased pain or increased bleeding, meaning your bleeding through more than 1 pad per hour for 4 hours consecutively or you pass out. Referrals: ELIEZER HANNAH MD [ACTIVE STAFF] - Follow up as needed [facility] [Outside] - Follow up as needed
[2019-01-29 18:08] VITALS: BP 108/57
--- NOTE | 2019-01-29 22:26 | EKG REPORT ---
SEVERITY:- BORDERLINE ECG - SINUS RHYTHM BORDERLINE T ABNORMALITIES, ANTERIOR LEADS : Confirmed by: Robinson Lewis MD 29-Jan-2019 22:26:19
== END 2019-01-29 18:17 | disposition home or self-care (01) ==
LOC: ER 14:28
DX: O20.8 Other hemorrhage in early pregnancy (principal); O26.891 Other specified pregnancy related conditions, first trimester; R09.89 Other specified symptoms and signs involving the circulatory and respiratory systems; R10.30 Lower abdominal pain, unspecified; Z3A.01 Less than 8 weeks gestation of pregnancy
CPT/HCPCS: 93005; 99284; 86900; 86901; 36415; 84702; 85025; 80053; 81001; 76817; 93010; J3490 ×2

== ENCOUNTER 2019-05-28 11:23 | Emergency (ER) | payer MEDICAID ==
--- NOTE | 2019-05-28 11:44 | ER Document Report ---
ED Medical Screen (RME) - General Chief Complaint: Vaginal Discharge Stated Complaint: VAGINAL ITCHING Time Seen by Provider: 05/28/19 11:36 TRAVEL OUTSIDE OF THE [place] IN LAST 30 DAYS: No - HPI Notes: 05/28/19 11:44 Patient is a 28-year-old female complaining of vaginal pain, irritation, itchiness, scant discharge over the past 4 to 5 days. Patient states that she has had occasional burning with urination. No vaginal bleeding or pelvic pain otherwise. No fever. I have treated and performed a rapid initial assessment of this patient. A comprehensive ED assessment and evaluation of the patient, analysis of test results and completion of medical decision making process will be conducted by additional ED providers. PHYSICAL EXAMINATION: GENERAL: Well-appearing, well-nourished and in no acute distress. A&Ox4. Answers questions appropriately. Abdomen: Limited exam in triage, grossly nontender throughout. - Related Data Allergies/Adverse Reactions: No Known Allergies Allergy (Verified 05/28/19 11:29) Past Medical History Renal/ Medical History: Denies: Hx Peritoneal Dialysis - Immunizations Immunizations up to date: Yes Physical Exam - Vital signs Vitals: Temp Pulse Resp BP Pulse Ox 98.3 F 83 16 117/64 100 05/28/19 11:30 05/28/19 11:30 05/28/19 11:30 05/28/19 11:30 05/28/19 11:30 Course - Vital Signs Vital signs: Temp Pulse Resp BP Pulse Ox 98.3 F 83 16 117/64 100 05/28/19 11:30 05/28/19 11:30 05/28/19 11:30 05/28/19 11:30 05/28/19 11:30
[2019-05-28 12:17] LABS: APPEARANCE,URINE CLOUDY; BILIRUBIN,URINE NEGATIVE (NEGATIVE); COLOR,URINE YELLOW; GLUCOSE, URINE NEGATIVE (NEGATIVE); KETONES,URINE NEGATIVE (NEGATIVE); PROTEIN,URINE 30 mg/dL (NEGATIVE); URINE SPECIFIC GRAVITY 1.023; UROBILINOGEN,URINE NEGATIVE mg/dL (<2.0)
[2019-05-28] MEDS ORDERED: CEFTRIAXONE INJ 250 MG VIAL IM ONE (12:37)
[2019-05-28] MEDS ORDERED: LIDOCAINE 1% INJ-PF (10 MG/ML) 30 ML SDV NEB ONE (12:37)
[2019-05-28] MEDS ORDERED: AZITHROMYCIN 250 MG TABLET PO ONE (12:37)
[2019-05-28 12:45] LABS: BACTERIA (WET MOUNT) 4+ BACTERIA SEEN; EPITHELIALS (WET MOUNT) 4+ EPITHELIALS SEEN; RBCS (WET MOUNT) 1+ RBCS SEEN; T.VAGINALIS (WET MOUNT) NO TRICHOMONAS SEEN; WBCS (WET MOUNT) 4+ WBCS SEEN; YEAST (WET MOUNT) NO YEAST SEEN
--- NOTE | 2019-05-28 12:47 | ER Document Report ---
ED General - General Chief Complaint: Vaginal Discharge Stated Complaint: VAGINAL ITCHING Time Seen by Provider: 05/28/19 11:36 Notes: 28-year-old female presents with vaginal irritation/discomfort, itchiness, white discharge, dysuria for the past 4 to 5 days. Patient states she had a similar episode approximately 8 to 9 years ago and was diagnosed with yeast infection. Patient denies any nausea/vomiting/diarrhea/constipation, abdominal pain, fever. Patient states no concern for STD however would like to be treated for gonorrhea chlamydia. TRAVEL OUTSIDE OF THE [place] IN LAST 30 DAYS: No - Related Data Allergies/Adverse Reactions: No Known Allergies Allergy (Verified 05/28/19 11:29) Past Medical History - Social History Smoking Status: Former Smoker Family History: Reviewed & Not Pertinent Patient has suicidal ideation: No Patient has homicidal ideation: No Renal/ Medical History: Denies: Hx Peritoneal Dialysis - Immunizations Immunizations up to date: Yes Review of Systems - Review of Systems Notes: Constitutional: Negative for fever. HENT: Negative for sore throat. Eyes: Negative for visual changes. Cardiovascular: Negative for chest pain. Respiratory: Negative for shortness of breath. Gastrointestinal: Negative for abdominal pain, vomiting or diarrhea. Genitourinary: Positive for dysuria, vaginal discharge, vaginal irritation/itching. Musculoskeletal: Negative for back pain. Skin: Negative for rash. Neurological: Negative for headaches, weakness or numbness. 10 point ROS negative except as marked above and in HPI. Physical Exam - Vital signs Vitals: Temp Pulse Resp BP Pulse Ox 98.3 F 83 16 117/64 100 05/28/19 11:30 05/28/19 11:30 05/28/19 11:30 05/28/19 11:30 05/28/19 11:30 - Notes Notes: GENERAL: Well-appearing, well-nourished and in no acute distress. HEAD: Atraumatic, normocephalic. EYES: Extraocular movements intact, sclera anicteric, conjunctiva are normal. NECK: Normal range of motion, supple without lymphadenopathy or JVD. ABDOMEN: Soft, nontender. No guarding, no rebound. No masses appreciated. PELVIC: Mild white discharge. No vaginal bleeding. No cervical motion tenderness. No bilateral adnexal tenderness. EXTREMITIES: Normal range of motion, no pitting or edema. No clubbing or cyanosis. NEUROLOGICAL: Cranial nerves II through XII grossly intact. Normal speech, normal gait. PSYCH: Normal mood, normal affect. SKIN: Warm, Dry, normal turgor, no rashes or lesions noted. Course - Re-evaluation Re-evalutation: 05/28/19 nontoxic, well-appearing 28-year-old female presents for vaginal irritation, vaginal discomfort, white vaginal discharge for the last 4 to 5 days. Patient is also complaining of dysuria. Afebrile. Non-tachycardic. Abdomen soft nontender. Pelvic reveals white vaginal discharge with no adnexal or cervical motion tenderness. Patient states low probability of STD however states she would like to be treated for gonorrhea/chlamydia. UA does show UTI. Pelvic cultures pending. 05/28/19 13:14 pelvic cultures show no yeast or no trichomonas. Patient to be treated for bacterial vaginosis. Patient given close follow-up with BUSINESS EXCELLENCE MANAGER. Return precautions given. Patient voices understanding and agrees with plan of care. - Vital Signs Vital signs: Temp Pulse Resp BP Pulse Ox 98.3 F 83 16 117/64 100 05/28/19 11:30 05/28/19 11:30 05/28/19 11:30 05/28/19 11:30 05/28/19 11:30 - Laboratory Laboratory results interpreted by me: 05/28/19 11:50 Urine Protein 30 H Urine Blood SMALL H Urine Nitrite (Reflex) POSITIVE H Leukocyte Esterase Rfl LARGE H Discharge - Discharge Clinical Impression: Bacterial vaginosis, Vaginal discharge, Acute UTI Condition: Stable Disposition: HOME, SELF-CARE Instructions: Vaginosis, Bacterial ([facility]), Urinary Tract Infection ([facility]) Additional Instructions: Please take Flagyl as prescribed. Finish all doses even if you feel better. Please do not drink alcohol while taking as it may make you sick. Please follow-up with BUSINESS EXCELLENCE MANAGER in 3 to 5 days. Please take antibiotics as prescribed for UTI. And finish all doses unless we call you to change it based off your urine culture. We also checked you for gonorrhea and chlamydia, we will call you if either is positive. We did treat you for both in the ER today. Return to ER for any worsening symptoms including nausea/vomiting, fever, abdominal pain, increased vaginal discharge, chest pain, pelvic pain, or any other symptoms that are concerning to you. Prescriptions: Metronidazole [Flagyl 500 mg Tablet] 500 mg PO BID #14 tablet Nitrofurantoin/Nitrofuran Mac [Macrobid 100 mg Capsule] 1 tab PO BID #14 capsule Forms: Return to Work Referrals: [facility] [Provider Group] - Follow up in 3-5 days [facility] [Provider Group] - Follow up in 3-5 days
[2019-05-28 14:12] LABS: CHLAM PCR NOT DETECTED (NOT DETECT)
[2019-05-28 16:33] VITALS: BP 116/82
== END 2019-05-28 13:20 | disposition home or self-care (01) ==
LOC: ER 11:23
DX: N76.0 Acute vaginitis (principal); B96.89 Other specified bacterial agents as the cause of diseases classified elsewhere; N39.0 Urinary tract infection, site not specified
CPT/HCPCS: 94640; 99283; 96372; 87086; 87210; 81025; 87088; 81001; 87186; 87491; 87591; Q0144; J3490; J0696

== ENCOUNTER → 2020-02-02 | Outpatient (CLI) | payer MEDICAID ==
[2020-02-02 16:00] LABS: APPEARANCE,URINE SLIGHTLY-CLOUDY; BILIRUBIN,URINE NEGATIVE (NEGATIVE); COLOR,URINE AMBER; GLUCOSE, URINE NEGATIVE (NEGATIVE); KETONES,URINE NEGATIVE (NEGATIVE); PROTEIN,URINE NEGATIVE (NEGATIVE); URINE SPECIFIC GRAVITY 1.016; UROBILINOGEN,URINE NEGATIVE mg/dL (<2.0)
[2020-02-02 16:07] LABS: HEMATOCRIT 35.9 % (36.0-47.0); HEMOGLOBIN 11.9 g/dL (12.0-15.5); MEAN CORPUSCULAR HEMOGLOBIN 28.2 pg (27.0-33.4); MEAN CORPUSCULAR HGB CONC 33.1 g/dL (32.0-36.0); MEAN CORPUSCULAR VOLUME 85 fl (80-97); PLATELET COUNT 196 10^3/uL (150-450); RED BLOOD COUNT 4.21 10^6/uL (3.72-5.28); RED CELL DISTRIBUTION WIDTH 15.6 % (11.5-14.0); WHITE BLOOD COUNT 5.7 10^3/uL (4.0-10.5)
[2020-02-02 16:20] LABS: INTERNATIONAL RATION (INR) 0.93; PROTHROMBIN TIME 12.7 SEC (11.4-15.4)
--- NOTE | 2020-02-02 16:20 | RADIOLOGY REPORT (SQ) ---
EXAM DESCRIPTION: CHEST PA/LATERAL IMAGES COMPLETED DATE/TIME: 02/02/2020 3:26 pm REASON FOR STUDY: ENCOUNTER FOR OTHER PREPROCEDURAL EXAMINATION COMPARISON: None. EXAM PARAMETERS: NUMBER OF VIEWS: two views TECHNIQUE: Digital Frontal and Lateral radiographic views of the chest acquired. RADIATION DOSE: NA LIMITATIONS: none FINDINGS: LUNGS AND PLEURA: No opacities, masses or pneumothorax. No pleural effusion. MEDIASTINUM AND HILAR STRUCTURES: No masses or contour abnormalities. HEART AND VASCULAR STRUCTURES: Heart normal size. No evidence for failure. BONES: No acute findings. HARDWARE: None in the chest. OTHER: No other significant finding. IMPRESSION: NO SIGNIFICANT RADIOGRAPHIC FINDING IN THE CHEST. TECHNICAL DOCUMENTATION: JOB ID: [id number] [employer]- All Rights Reserved Reading location - IP/workstation name: [email or web address]
[2020-02-02 16:21] LABS: PARTIAL THROMBOPLASTIN TIME 30.4 SEC (23.5-35.8)
[2020-02-02 16:32] LABS: ALBUMIN 4.6 g/dL (3.5-5.0); ALKALINE PHOSPHATASE 58 U/L (38-126); ANION GAP 11 (5-19); ASPARTATE AMINO TRANSFERASE 21 U/L (14-36); BILIRUBIN,DIRECT 0.3 mg/dL (0.0-0.4); BILIRUBIN,TOTAL 0.3 mg/dL (0.2-1.3); BLOOD UREA NITROGEN 9 mg/dL (7-20); CALCIUM 9.4 mg/dL (8.4-10.2); CARBON DIOXIDE 24 mmol/L (22-30); CHLORIDE 102 mmol/L (98-107); GLUCOSE 98 mg/dL (75-110); POTASSIUM 4.5 mmol/L (3.6-5.0); TOTAL PROTEIN 7.5 g/dL (6.3-8.2)
--- NOTE | 2020-02-02 21:32 | EKG REPORT ---
SEVERITY:- NORMAL ECG - SINUS RHYTHM : Confirmed by: Camille Hernandez MD 02-Feb-2020 21:31:47
[2020-02-04 07:37] LABS: HEPATITIS C VIRUS AB 0.1 s/co ratio (0.0-0.9)
== END ==
LOC: OD 14:36
PROVIDERS: ATTEND Emergency Medicine
DX: Z01.818 Encounter for other preprocedural examination (principal)
CPT/HCPCS: 36415; 71046; 80053; 81001; 83036; 84443; 84703; 85027; 85610; 85730; 86701; 86803; 86804; 93005; 93010

== ENCOUNTER → 2020-02-14 | Outpatient (CLI) | payer MEDICAID ==
[2020-02-14 13:55] LABS: IRON(TIBC) 101.6 ug/dL (37-170)
[2020-02-14 18:14] LABS: FREE T4 (FREE THYROXINE) 0.9 ng/dL (0.78-2.19)
[2020-02-14 18:28] LABS: THYROID STIMULATING HORMONE 0.57 uIU/mL (0.47-4.68)
== END ==
LOC: OD 12:27
PROVIDERS: ATTEND Nurse Practitioner Family
DX: D64.9 Anemia, unspecified (principal); E05.90 Thyrotoxicosis, unspecified without thyrotoxic crisis or storm
CPT/HCPCS: 36415; 82728; 83540; 83550; 84439; 84443

== ENCOUNTER → 2020-04-03 | Outpatient (CLI) | payer MEDICAID ==
[2020-04-03 18:10] LABS: HEMATOCRIT 35.2 % (36.0-47.0); HEMOGLOBIN 11.6 g/dL (12.0-15.5); MEAN CORPUSCULAR HEMOGLOBIN 28.1 pg (27.0-33.4); MEAN CORPUSCULAR HGB CONC 32.9 g/dL (32.0-36.0); MEAN CORPUSCULAR VOLUME 85 fl (80-97); PLATELET COUNT 191 10^3/uL (150-450); RED BLOOD COUNT 4.12 10^6/uL (3.72-5.28); WHITE BLOOD COUNT 8.2 10^3/uL (4.0-10.5)
[2020-04-03 18:19] LABS: INTERNATIONAL RATION (INR) 0.83; PROTHROMBIN TIME 11.6 SEC (11.4-15.4)
[2020-04-03 18:20] LABS: PARTIAL THROMBOPLASTIN TIME 30.2 SEC (23.5-35.8)
[2020-04-03 18:20] LABS: APPEARANCE,URINE SLIGHTLY-CLOUDY; BILIRUBIN,URINE NEGATIVE (NEGATIVE); COLOR,URINE YELLOW; GLUCOSE, URINE NEGATIVE (NEGATIVE); KETONES,URINE NEGATIVE (NEGATIVE); PROTEIN,URINE NEGATIVE (NEGATIVE); URINE SPECIFIC GRAVITY 1.021; UROBILINOGEN,URINE NEGATIVE mg/dL (<2.0)
[2020-04-03 18:35] LABS: ALBUMIN 4.5 g/dL (3.5-5.0); ALKALINE PHOSPHATASE 57 U/L (38-126); ANION GAP 10 (5-19); ASPARTATE AMINO TRANSFERASE 20 U/L (14-36); BILIRUBIN,DIRECT 0.1 mg/dL (0.0-0.4); BILIRUBIN,TOTAL 0.2 mg/dL (0.2-1.3); BLOOD UREA NITROGEN 12 mg/dL (7-20); CALCIUM 9.7 mg/dL (8.4-10.2); CARBON DIOXIDE 24 mmol/L (22-30); CHLORIDE 103 mmol/L (98-107); GLUCOSE 97 mg/dL (75-110); POTASSIUM 3.9 mmol/L (3.6-5.0); TOTAL PROTEIN 7.4 g/dL (6.3-8.2)
== END ==
LOC: LAB 17:36
DX: Z01.818 Encounter for other preprocedural examination (principal)
CPT/HCPCS: 36415; 80053; 81001; 83036; 84443; 84703; 85027; 85610; 85730; 86701; 86803; 86804

== ENCOUNTER 2020-04-28 10:10 | Emergency (ER) | payer MEDICAID ==
--- NOTE | 2020-04-28 10:23 | ER Document Report ---
ED Medical Screen (RME) - General TRAVEL OUTSIDE OF THE [place] IN LAST 30 DAYS: No <KRISTY HOSKINS - Last Filed: 04/28/20 10:22> <TYLER MOYA JR - Last Filed: 04/28/20 11:28> - General Chief Complaint: Vaginal Bleeding Stated Complaint: VAGINAL BLEEDING Time Seen by Provider: 04/28/20 10:15 Primary Care Provider: RAYMOND DANIELS [NO LOCAL MD] - Follow up as needed Notes: Patient states that she was recently late on her menstrual cycle and took a pre gnancy test that was positive. Patient states she started having cramping 2 days ago and vaginal bleeding yesterday. Patient states she has had heavy bleeding with clots. Patient reports G3, P1. Patient does report occasional lightheadedness. I have greeted and performed a rapid initial assessment of this patient. A comprehensive ED assessment and evaluation of the patient, analysis of test results and completion of the medical decision making process will be conducted by additional ED providers. (KRISTY HOSKINS) - Related Data Allergies/Adverse Reactions: No Known Allergies Allergy (Verified 04/28/20 10:24) Past Medical History Renal/ Medical History: Denies: Hx Peritoneal Dialysis - Immunizations Immunizations up to date: Yes <KRISTY HOSKINS - Last Filed: 04/28/20 10:22> Physical Exam - Abdominal Tenderness: Tender - Lower pelvic tenderness, exam limited as patient is in chair <KRISTY HOSKINS - Last Filed: 04/28/20 10:22> Course - Laboratory Results Result Diagrams: 04/28/20 10:30 04/28/20 10:30 <TYLER MOYA JR - Last Filed: 04/28/20 11:28> - Laboratory Results Laboratory Results Interpreted: 04/28/20 04/28/20 10:24 10:30 Hgb 11.9 L RDW 14.2 H Urine Protein 100 H Urine Blood LARGE H Ur Leukocyte Esterase MODERATE H Doctor's Discharge <KRISTY HOSKINS - Last Filed: 04/28/20 10:22> <TYLER MOYA JR - Last Filed: 04/28/20 11:28> - Discharge Referrals: RAYMOND DANIELS [NO LOCAL MD] - Follow up as needed
[2020-04-28 10:58] LABS: ABSOLUTE EOSINOPHILS # (AUTO) 0.2 10^3/uL (0.0-0.6); ABSOLUTE LYMPHOCYTES (AUTO) 2.2 10^3/uL (0.5-4.7); ABSOLUTE MONOCYTES (AUTO) 0.4 10^3/uL (0.1-1.4); ABSOLUTE NEUT (AUTO) 5.5 10^3/uL (1.7-8.2); BASOPHILS % (AUTO) 0.4 % (0-2); EOSINOPHILS % (AUTO) 2.1 % (0-6); HEMATOCRIT 36.2 % (36.0-47.0); HEMOGLOBIN 11.9 g/dL (12.0-15.5); LYMPHOCYTES % (AUTO) 26.4 % (13-45); MEAN CORPUSCULAR HEMOGLOBIN 28.1 pg (27.0-33.4); MEAN CORPUSCULAR HGB CONC 32.9 g/dL (32.0-36.0); MEAN CORPUSCULAR VOLUME 85 fl (80-97); MONOCYTES % (AUTO) 4.8 % (3-13); PLATELET COUNT 200 10^3/uL (150-450); RED BLOOD COUNT 4.24 10^6/uL (3.72-5.28); RED CELL DISTRIBUTION WIDTH 14.2 % (11.5-14.0); SEGMENTED NEUTROPHILS % (AUTO) 66.3 % (42-78); TOTAL CELLS COUNTED % (AUTO) 100 %; WHITE BLOOD COUNT 8.3 10^3/uL (4.0-10.5)
[2020-04-28 11:11] LABS: APPEARANCE,URINE CLOUDY; BILIRUBIN,URINE NEGATIVE (NEGATIVE); COLOR,URINE YELLOW; GLUCOSE, URINE NEGATIVE (NEGATIVE); KETONES,URINE NEGATIVE (NEGATIVE); LEUKOCYTE ESTERASE,URINE MODERATE (NEGATIVE); NITRITE,URINE NEGATIVE (NEGATIVE); PROTEIN,URINE 100 mg/dL (NEGATIVE); URINE SPECIFIC GRAVITY 1.028; UROBILINOGEN,URINE NEGATIVE mg/dL (<2.0)
[2020-04-28 11:27] LABS: ANION GAP 10 (5-19); BLOOD UREA NITROGEN 13 mg/dL (7-20); CALCIUM 9.4 mg/dL (8.4-10.2); CARBON DIOXIDE 22 mmol/L (22-30); CHLORIDE 106 mmol/L (98-107); GLUCOSE 94 mg/dL (75-110); POTASSIUM 4.2 mmol/L (3.6-5.0)
--- NOTE | 2020-04-28 11:32 | ER Document Report ---
ED General - General Chief Complaint: Vaginal Bleeding Stated Complaint: VAGINAL BLEEDING Time Seen by Provider: 04/28/20 10:15 Primary Care Provider: RAYMOND DANIELS [RAYMOND MAURICIO MD] - Follow up as needed Mode of Arrival: Ambulatory Information source: Patient Notes: ED Medical Screen ([facility])) - General TRAVEL OUTSIDE OF THE [place] IN LAST 30 DAYS: No <KRISTY HOSKINS - Last Filed: 04/28/20 10:22> <TYLER MOYA JR - Last Filed: 04/28/20 11:28> - General Chief Complaint: Vaginal Bleeding Stated Complaint: VAGINAL BLEEDING Time Seen by Provider: 04/28/20 10:15 Primary Care Provider: RAYMOND DANIELS [NO LULY MD] - Follow up as needed Notes: Patient states that she was recently late on her menstrual cycle and took a test that was positive. Patient states she started having cramping 2 days ago and vaginal bleeding yesterday. Patient states she has had heavy bleeding with clots. Patient reports G3, P1. Patient does report occasional lightheadedness. MY NOTES 29 year old female black with chief complaint of missing her menstrual on 22 April. She did a test 2 days ago and it was positive from [employer]. She continued to have some vaginal bleeding over the last 24 to 36 hours and took 2 other test which were both positive. She arrives today with diffuse abdominal pain. She is a G3 para one 10-year-old son and has an many years ago. Ultrasound today was negative for IUP or intra- abdominal. TRAVEL OUTSIDE OF THE [place] IN LAST 30 DAYS: No - HPI Onset: Just prior to arrival Onset/Duration: Sudden, Persistent Quality of pain: Achy Severity: Moderate Pain Level: 2 Associated symptoms: Nausea - Related Data Allergies/Adverse Reactions: No Known Allergies Allergy (Verified 04/28/20 10:24) Home Medications: klonopin Past Medical History - General Information source: Patient - Social History Smoking Status: Never Smoker Cigarette use (# per day): No Chew tobacco use (# tins/day): No Smoking Education Provided: No Frequency of alcohol use: None Drug Abuse: None Lives with: Family Family History: Reviewed & Not Pertinent Patient has suicidal ideation: No Patient has homicidal ideation: No Renal/ Medical History: Denies: Hx Peritoneal Dialysis - Immunizations Immunizations up to date: Yes Review of Systems - Review of Systems Constitutional: See HPI, Weakness EENT: No symptoms reported Cardiovascular: No symptoms reported Respiratory: No symptoms reported Gastrointestinal: No symptoms reported, See HPI, Abdominal pain Genitourinary: See HPI, Hematuria Female Genitourinary: See HPI, , Heavy/abnormal periods, Vaginal bleeding Musculoskeletal: No symptoms reported Skin: No symptoms reported Hematologic/Lymphatic: No symptoms reported Neurological/Psychological: No symptoms reported -: Yes All other systems reviewed and negative Physical Exam - Vital signs Interpretation: Normal - General General appearance: Appears well, Alert - HEENT Head: Normocephalic, Atraumatic Eyes: Normal Pupils: PERRL - Respiratory Respiratory status: No respiratory distress Chest status: Nontender Breath sounds: Normal Chest palpation: Normal - Cardiovascular Rhythm: Regular Heart sounds: Normal auscultation Murmur: No - Abdominal Inspection: Normal Distension: No distension Bowel sounds: Normal Tenderness: Tender - Tender diffusely over lower quadrants Organomegaly: No organomegaly - Rectal Hemorrhoids: Other - Deferred - Genitourinary Biman[place] exam: Other - Deferred by myself but ultrasound was done by techs - Back Back: Normal, Nontender - Extremities General upper extremity: Normal inspection, Nontender, Normal color, Normal ROM, Normal temperature General lower extremity: Normal inspection, Nontender, Normal color, Normal ROM, Normal temperature, Normal weight bearing. No: Krissy's sign - Neurological Neuro grossly intact: Yes Cognition: Normal Orientation: AAOx4 [place] Coma Scale Eye Opening: Spontaneous [place] Coma Scale Verbal: Oriented [place] Coma Scale Motor: Obeys Commands [place] Coma Scale Total: 15 Speech: Normal Motor strength normal: LUE, RUE, LLE, RLE Sensory: Normal - Psychological Associated symptoms: Normal affect, Normal mood - Skin Skin Temperature: Warm Skin Moisture: Dry Skin Color: Normal Course - Laboratory Results Result Diagrams: 04/28/20 10:30 04/28/20 10:30 Laboratory Results Interpreted: 04/28/20 04/28/20 04/28/20 10:24 10:30 10:30 Hgb 11.9 L RDW 14.2 H Beta HCG, Quant 343.49 H Urine Protein 100 H Urine Blood LARGE H Ur Leukocyte Esterase MODERATE H Critical Laboratory Results Reviewed: Yes Attending or Supervising Physician who Reviewed Labs: TYLER MOYA JR - Radiology Results Radiology Results Interpreted: 04/28/20 14:48 dr moscoso read us Critical Radiology Results Reviewed: Yes Attending or Supervising Physician who Reviewed Radiology: TYLER MOYA JR Discharge - Discharge Clinical Impression: Complete , Vaginal bleeding Condition: Stable Disposition: HOME, SELF-CARE Additional Instructions: Follow-up with Dr. Debbie Andujar return to ER as needed take medicines as directed encourage fluids Prescriptions: Oxycodone HCl/Acetaminophen [Percocet 5-325 mg Tablet] 1 tab PO Q4H PRN #15 tablet PRN Reason: Pain Scale Of 1 Ondansetron [Zofran Odt 4 mg Tablet] 1 - 2 tab PO Q4H PRN #15 tab.rapdis PRN Reason: For Nausea/Vomiting Referrals: FRANCES,RAYMOND [NO LOCAL MD] - Follow up as needed DEBBIE ANDUJAR MD [ACTIVE STAFF] - Follow up as needed
--- NOTE | 2020-04-28 12:52 | RADIOLOGY REPORT (SQ) ---
EXAM DESCRIPTION: U/S OB TRANSVAGINAL W/O DOP IMAGES COMPLETED DATE/TIME: 04/28/2020 9:31 am REASON FOR STUDY: pelvic pain COMPARISON: None. TECHNIQUE: Transvaginal static and realtime grayscale images acquired of the pelvis. Additional francisco cted spectral and color Doppler images recorded. All images stored on PACs. CLINICAL AGE: 5 weeks and 6 days [facility]HC LIMITATIONS: None. FINDINGS: UTERUS: No visualized intrauterine . RIGHT ADNEXA: Normal ovary with normal vascular flow. No adnexal free fluid. No adnexal masses. LEFT ADNEXA: Normal ovary with normal vascular flow. No adnexal free fluid. Small exophytic left ovarian cyst/parovarian cyst measuring 1.3 x 1.2 x 1.3 cm. FREE FLUID: Small amount of free fluid in the cul de sac. OTHER: No other significant finding. IMPRESSION: NO VISUALIZED INTRA- OR EXTRAUTERINE . bHCG LEVEL TOO LOW TO EXPECT VISUALIZATION OF . ECTOPIC CANNOT BE EXCLUDED. FOLLOW-UP ULTRASOUND AND SERIAL BHCG LEVELS STRONGLY RECOMMENDED TO ACCURATELY ASSESS STATU S. TECHNICAL DOCUMENTATION: JOB ID: [id number] [employer]- All Rights Reserved Reading location - IP/workstation name: [email or web address]
[2020-04-28] MEDS ORDERED: ONDANSETRON 4 MG TAB.RAPDIS PO ONE (14:38)
[2020-04-28] MEDS ORDERED: OXYCODONE-ACETAMINOPHEN 5-325 MG TABLET PO ONE (14:38)
[2020-04-28 16:04] VITALS: BP 122/78
== END 2020-04-28 16:03 | disposition home or self-care (01) ==
LOC: ER 10:10
DX: O03.9 Complete or unspecified spontaneous abortion without complication (principal); R53.1 Weakness
CPT/HCPCS: 99284; 86900; 86901; 36415; 84702; 85025; 80048; 81001; 76817; S0119

== ENCOUNTER 2020-05-02 14:10 | Emergency (ER) | payer OTHER, MEDICAID ==
[2020-05-02 14:15] VITALS: BP 121/79
[2020-05-02] MEDS ORDERED: ACETAMINOPHEN 325 MG TABLET PO ONE (14:57)
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
[2020-05-02] MEDS ORDERED: ACETAMINOPHEN 325 MG TABLET ONE (17:44)
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
[2020-05-02] MEDS ORDERED: HYDROCODONE/ACETAMINOPHEN 5-325 MG (6 TAB/ER DISP) PO PRN (18:18)
[2020-05-02] MEDS ORDERED: NAPROXEN 375 MG TABLET PO ONE (18:20)
[2020-05-02] MEDS ORDERED: OXYCODONE-ACETAMINOPHEN 5-325 MG TABLET PO ONE (18:20)
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
== END 2020-05-02 19:38 | disposition home or self-care (01) ==
LOC: ER 14:10
DX: O03.9 Complete or unspecified spontaneous abortion without complication (principal); M79.603 Pain in arm, unspecified; M54.9 Dorsalgia, unspecified; M54.2 Cervicalgia; M25.511 Pain in right shoulder; M25.512 Pain in left shoulder; M54.5 Low back pain; M54.6 Pain in thoracic spine; R51.9 Headache, unspecified; V89.2XXA Person injured in unspecified motor-vehicle accident, traffic, initial encounter; Z79.899 Other long term (current) drug therapy
CPT/HCPCS: 99285; 36415; 84702; 72110; 73030 ×2; 76817; 70450; 72125; J3490

== ENCOUNTER → 2020-05-27 | Outpatient (CLI) | payer MEDICAID ==
[2020-05-27 19:47] LABS: ABSOLUTE BASOPHILS # (AUTO) 0.1 10^3/uL (0.0-0.2); ABSOLUTE EOSINOPHILS # (AUTO) 0.1 10^3/uL (0.0-0.6); ABSOLUTE LYMPHOCYTES (AUTO) 2.1 10^3/uL (0.5-4.7); ABSOLUTE MONOCYTES (AUTO) 0.3 10^3/uL (0.1-1.4); ABSOLUTE NEUT (AUTO) 5.9 10^3/uL (1.7-8.2); BASOPHILS % (AUTO) 0.8 % (0-2); HEMATOCRIT 37.5 % (36.0-47.0); HEMOGLOBIN 12.2 g/dL (12.0-15.5); LYMPHOCYTES % (AUTO) 24.3 % (13-45); MEAN CORPUSCULAR HEMOGLOBIN 27.3 pg (27.0-33.4); MEAN CORPUSCULAR HGB CONC 32.5 g/dL (32.0-36.0); MEAN CORPUSCULAR VOLUME 84 fl (80-97); MONOCYTES % (AUTO) 3.9 % (3-13); PLATELET COUNT 206 10^3/uL (150-450); RED BLOOD COUNT 4.47 10^6/uL (3.72-5.28); RED CELL DISTRIBUTION WIDTH 14.5 % (11.5-14.0); TOTAL CELLS COUNTED % (AUTO) 100 %; WHITE BLOOD COUNT 8.5 10^3/uL (4.0-10.5)
[2020-05-27 19:50] LABS: APPEARANCE,URINE SLIGHTLY-CLOUDY; BILIRUBIN,URINE NEGATIVE (NEGATIVE); COLOR,URINE YELLOW; GLUCOSE, URINE NEGATIVE (NEGATIVE); KETONES,URINE NEGATIVE (NEGATIVE); PROTEIN,URINE NEGATIVE (NEGATIVE); URINE SPECIFIC GRAVITY 1.016; UROBILINOGEN,URINE NEGATIVE mg/dL (<2.0)
[2020-05-27 19:54] LABS: INTERNATIONAL RATION (INR) 0.94; PARTIAL THROMBOPLASTIN TIME 31.5 SEC (23.5-35.8); PROTHROMBIN TIME 12.8 SEC (11.4-15.4)
[2020-05-27 20:13] LABS: ALBUMIN 4.2 g/dL (3.5-5.0); ALKALINE PHOSPHATASE 60 U/L (38-126); ASPARTATE AMINO TRANSFERASE 21 U/L (14-36); BILIRUBIN,DIRECT 0.2 mg/dL (0.0-0.4); BILIRUBIN,TOTAL 0.7 mg/dL (0.2-1.3); BLOOD UREA NITROGEN 9 mg/dL (7-20); CALCIUM 9.2 mg/dL (8.4-10.2); CARBON DIOXIDE 28 mmol/L (22-30); GLUCOSE 107 mg/dL (75-110); TOTAL PROTEIN 7.2 g/dL (6.3-8.2)
[2020-05-27 20:23] LABS: ANION GAP 5 (5-19); CHLORIDE 104 mmol/L (98-107); POTASSIUM 3.8 mmol/L (3.6-5.0)
== END ==
LOC: LAB 18:51
PROVIDERS: ATTEND Surgery Plastic and Reconstructive Surgery
DX: Z01.818 Encounter for other preprocedural examination (principal)
CPT/HCPCS: 36415; 80053; 81001; 83036; 84443; 84703; 85025; 85610; 85730; 86701; 87522